=== PATIENT | male | born 1995 | race African-American/Black ===

== ENCOUNTER 2021-09-24 12:04 | Inpatient (IN) ==
[2021-09-24 15:23] LABS: Basophils # 0.1 10*3/uL (0.0-0.2); Basophils % 0.8 % (0.0-0.8); Eosinophils % 0.2 % (0.00-10.9); Hematocrit 48.3 VOL% (42.0-52.0); Hemoglobin 16.1 GM/DL (14.0-18.0); Immature Granulocytes % 0.3 %; Immature Granulocytes Absolute 0.02 #; Lymphocytes # 2.3 10*3/uL (1.4-4.0); Lymphocytes % 34.2 % (21.2-54.2); Mean Corpuscular HGB Conc 33.3 GM/DL (32-36); Mean Corpuscular Volume 88.1 FL (87-102); Mean Platelet Volume 9.3 FL (9.6-12.0); Monocytes # 0.6 10*3/uL (0.11-0.8); Monocytes % 8.5 % (1.7-12.7); Platelet Count 242 T/CUMM (130-400); Red Blood Count 5.48 MC/CUMM (3.8-5.5); Red Cell Distribution Width 12.9 % (9.3-17.3); White Blood Count 6.6 T/CUMM (4-12)
[2021-09-24 15:47] LABS: Alanine Aminotransferase 148 U/L (16-61); Albumin > 5.0 G/DL (3.4-5.0); Alkaline Phosphatase 106 U/L (45-117); Aspartate Amino Transferase 34 U/L (0-37); Blood Urea Nitrogen 13 MG/DL (7-18); Calcium 10.5 MG/DL (8.5-10.1); Carbon Dioxide 26 MMOL/L (21-32); Chloride 104 MMOL/L (98-107); Estimated Glom Filtration Rate 156 ML/MIN; Glucose 97 MG/DL (74-106); Potassium 3.7 MMOL/L (3.5-5.1); Sodium 136 MMOL/L (136-145); Total Protein 9.8 G/DL (6.4-8.2)
[2021-09-24 15:50] LABS: Free T4 (Free Thyroxine) 1.32 NG/DL (0.76-1.46); Thyroid Stimulating Hormone 2.05 uIU/ml (0.358-3.74)
[2021-09-24 15:57] LABS: Atypical Lymphocytes Few; Lymphocytes 34 % (20-55); Total Cells Counted 100
[2021-09-24 16:04] LABS: Platelet Estimate Normal
[2021-09-24 19:38] LABS: Mucus,Urine Occasional /LPF (Occasional); RBC,Urine 6 /HPF (0-4)
[2021-09-24 19:40] LABS: Bilirubin,Urine Negative (Negative); Blood, Urine Trace mg/dL (Negative); Glucose,Urine (UA) Negative (Negative); Ketones,Urine Negative (Negative); Nitrite,Urine Negative (Negative); Protein,Urine Negative (Negative); Urine Appearance Clear (Clear); Urine Color Yellow (Yellow); Urine pH 7.5 (4.5-8.0)
[2021-09-24 19:51] LABS: Barbiturates Screen,Urine Negative (Negative); Benzodiazepines Screen,Urine Negative (Negative); Cannabinoid Screen,Urine Negative (Negative); Opiate Screen,Urine Negative (Negative); Phencyclidine Screen,Urine Negative (Negative)
[2021-09-24] MEDS: SODIUM CHLORIDE 0.9% 1,000 ML IV SCH (21:17)
[2021-09-24] MEDS: ACETAMINOPHEN 325 MG TABLET PO PRN (22:40)
[2021-09-25] MEDS: SODIUM CHLORIDE 0.9% 1,000 ML IV SCH (07:06)
[2021-09-25 08:18] LABS: Albumin 4.9 G/DL (3.4-5.0); Bilirubin,Total 0.7 MG/DL (0.20-1.00); Calcium 10.1 MG/DL (8.5-10.1); Potassium 3.7 MMOL/L (3.5-5.1); Total Protein 9.4 G/DL (6.4-8.2)
[2021-09-25 08:31] LABS: Parathyroid Hormone Intact 49.7 PG/ML (18.4-80.1)
[2021-09-25] MEDS: PANTOPRAZOLE 40 MG TABLET PO SCH (09:07)
[2021-09-25 09:10] LABS: Albumin (SPE) 6.6 G/DL (3.2-5.3); Albumin (SPE) Rel % 66.3 %; Alpha 1 (SPE) 0.3 G/DL (0.1-0.4); Alpha 1 (SPE) Rel % 2.5 %; Alpha 2 (SPE) 0.6 G/DL (0.4-1.0); Beta (SPE) 1.1 G/DL (0.5-1.1); Beta (SPE) Rel % 11.1 %; Gamma (SPE) 1.4 G/DL (0.7-1.7); Gamma (SPE) Rel % 14.1 %
[2021-09-25] MEDS: ONDANSETRON 4 MG/2 ML VIAL IV PRN (09:16)
[2021-09-25 11:14] LABS: Basophils % 0.5 % (0.0-0.8); Eosinophils % 0.3 % (0.00-10.9); Hematocrit 45.3 VOL% (42.0-52.0); Hemoglobin 15.4 GM/DL (14.0-18.0); Immature Granulocytes % 0.2 %; Immature Granulocytes Absolute 0.01 #; Lymphocytes # 2.6 10*3/uL (1.4-4.0); Lymphocytes % 43.5 % (21.2-54.2); Mean Corpuscular Volume 85.8 FL (87-102); Monocytes # 0.7 10*3/uL (0.11-0.8); Monocytes % 12.3 % (1.7-12.7); Neutrophils % 43.2 % (38.7-73.9); Platelet Count 236 T/CUMM (130-400); Red Blood Count 5.28 MC/CUMM (3.8-5.5); Red Cell Distribution Width 12.6 % (9.3-17.3)
[2021-09-25] MEDS: DOCUSATE SODIUM 100 MG CAPSULE PO SCH ×2 (12:23→21:31)
[2021-09-25 14:32] LABS: PT Patient Result 11.5 SECS (10.5-12.0)
[2021-09-25 15:55] LABS: Glucose,CSF 64 MG/DL (40-70)
[2021-09-25 16:41] LABS: Lymphocytes,CSF 90 %; Neutrophils,CSF 10 %; Red Blood Cell,CSF 2 C/CUMM; White Blood Cell,CSF 7 C/CUMM
[2021-09-25 16:42] LABS: Appearance,CSF Clear
[2021-09-25] MEDS: diphenhydrAMINE CAP 25 MG CAPSULE PO SCH (17:35)
[2021-09-25] MEDS ORDERED: IMMUNE GLOBULIN 10% 20 GM, IMMUNE GLOBULIN 10% 10 GM in PREMIX 1 EACH IV SCH (18:00)
[2021-09-25] MEDS: ACETAMINOPHEN 500 MG TABLET PO SCH (18:33)
[2021-09-25] MEDS: hydrALAZINE 20 MG/1 ML VIAL IV PRN ×2 (20:25→22:28)
[2021-09-26] MEDS: SODIUM CHLORIDE 0.9% 1,000 ML IV SCH ×4 (00:25→23:05)
[2021-09-26] MEDS: ACETAMINOPHEN 325 MG TABLET PO PRN (04:23)
[2021-09-26] MEDS: ONDANSETRON 4 MG/2 ML VIAL IV PRN ×2 (06:40→12:34)
[2021-09-26 06:45] LABS: Basophils % 0.6 % (0.0-0.8); Hematocrit 43.3 VOL% (42.0-52.0); Hemoglobin 14.9 GM/DL (14.0-18.0); Immature Granulocytes % 0.2 %; Immature Granulocytes Absolute 0.01 #; Lymphocytes # 1.4 10*3/uL (1.4-4.0); Lymphocytes % 28.3 % (21.2-54.2); Mean Corpuscular HGB Conc 34.4 GM/DL (32-36); Mean Corpuscular Volume 85.6 FL (87-102); Mean Platelet Volume 9.6 FL (9.6-12.0); Monocytes # 0.6 10*3/uL (0.11-0.8); Monocytes % 11.6 % (1.7-12.7); Neutrophils % 59.3 % (38.7-73.9); Platelet Count 233 T/CUMM (130-400); Red Blood Count 5.06 MC/CUMM (3.8-5.5); Red Cell Distribution Width 12.9 % (9.3-17.3); White Blood Count 5.1 T/CUMM (4-12)
[2021-09-26 07:08] LABS: Albumin 4.4 G/DL (3.4-5.0); Bilirubin,Total 0.7 MG/DL (0.20-1.00); Calcium 9.8 MG/DL (8.5-10.1); Osmolality,Calculated 271.1 MOS/KG (273-304); Platelet Estimate Normal; Potassium 3.9 MMOL/L (3.5-5.1); Total Protein 9.8 G/DL (6.4-8.2)
[2021-09-26] MEDS: PANTOPRAZOLE 40 MG TABLET PO SCH (08:47)
[2021-09-26] MEDS: DOCUSATE SODIUM 100 MG CAPSULE PO SCH ×2 (08:47→21:25)
[2021-09-26] MEDS: CHOLECALCIFEROL 5,000 UNIT TABLET PO SCH (10:29)
[2021-09-26 12:33] LABS: Folate 6.79 NG/ML (5.38-24.0)
[2021-09-26] MEDS: MECLIZINE 25 MG TABLET PO PRN (14:31)
[2021-09-26] MEDS: ENOXAPARIN 40 MG/0.4 ML SYRINGE SUBCUT SCH (14:31)
[2021-09-26] MEDS: ACETAMINOPHEN 500 MG TABLET PO SCH (16:57)
[2021-09-26] MEDS: diphenhydrAMINE CAP 25 MG CAPSULE PO SCH (16:57)
[2021-09-26] MEDS ORDERED: IMMUNE GLOBULIN 10% 20 GM, IMMUNE GLOBULIN 10% 10 GM in PREMIX 1 EACH IV SCH (18:00)
[2021-09-26] MEDS: POLYETHYLENE GLYCOL POWDER 17 GM PACK PO SCH (21:25)
[2021-09-26] MEDS: LACTULOSE 20 GM/30 ML UDCUP PO SCH (21:25)
[2021-09-27 05:04] LABS: Basophils % 0.7 % (0.0-0.8); Eosinophils % 0.3 % (0.00-10.9); Hematocrit 42.4 VOL% (42.0-52.0); Hemoglobin 14.3 GM/DL (14.0-18.0); Immature Granulocytes % 0.3 %; Immature Granulocytes Absolute 0.02 #; Lymphocytes # 2.2 10*3/uL (1.4-4.0); Lymphocytes % 35.6 % (21.2-54.2); Mean Corpuscular HGB Conc 33.7 GM/DL (32-36); Mean Corpuscular Volume 86.4 FL (87-102); Monocytes # 0.7 10*3/uL (0.11-0.8); Monocytes % 12.2 % (1.7-12.7); Neutrophils % 50.9 % (38.7-73.9); Platelet Count 245 T/CUMM (130-400); Red Blood Count 4.91 MC/CUMM (3.8-5.5); Red Cell Distribution Width 12.9 % (9.3-17.3); White Blood Count 6.1 T/CUMM (4-12)
[2021-09-27 05:20] LABS: Bilirubin,Total 0.6 MG/DL (0.20-1.00); Calcium 9.7 MG/DL (8.5-10.1); Osmolality,Calculated 267.4 MOS/KG (273-304); Potassium 3.9 MMOL/L (3.5-5.1)
[2021-09-27 05:29] LABS: Platelet Estimate Adequate
[2021-09-27] MEDS: SODIUM CHLORIDE 0.9% 1,000 ML IV SCH ×3 (06:39→17:06)
[2021-09-27] MEDS: LACTULOSE 20 GM/30 ML UDCUP PO SCH ×2 (08:09→20:08)
[2021-09-27] MEDS: CHOLECALCIFEROL 5,000 UNIT TABLET PO SCH (08:09)
[2021-09-27] MEDS: POLYETHYLENE GLYCOL POWDER 17 GM PACK PO SCH ×2 (08:09→20:08)
[2021-09-27] MEDS: DOCUSATE SODIUM 100 MG CAPSULE PO SCH (08:10)
[2021-09-27] MEDS: PANTOPRAZOLE 40 MG TABLET PO SCH (08:10)
[2021-09-27] MEDS: amLODIPine 5 MG TABLET PO SCH (08:11)
[2021-09-27] MEDS ORDERED: amLODIPine 5 MG TABLET PO SCH (09:00)
[2021-09-27 10:11] LABS: Kappa Free Light Chain, CSF 0.0175 mg/dL (<0.1000)
[2021-09-27] MEDS: hydrALAZINE 20 MG/1 ML VIAL IV PRN (11:28)
[2021-09-27] MEDS: ENOXAPARIN 40 MG/0.4 ML SYRINGE SUBCUT SCH (13:31)
[2021-09-27 14:09] LABS: PTH-Related Peptide < 0.4 pmol/L (< or = 4.2)
[2021-09-27] MEDS: DOCUSATE SODIUM 100 MG/10 ML UDCUP PO SCH (20:09)
[2021-09-27] MEDS: MELATONIN 3 MG TABLET PO PRN (20:09)
[2021-09-27] MEDS: ACETAMINOPHEN 500 MG TABLET PO SCH (20:10)
[2021-09-27] MEDS: diphenhydrAMINE CAP 25 MG CAPSULE PO SCH (20:10)
[2021-09-27] MEDS: IMMUNE GLOBULIN 10% 20 GM, IMMUNE GLOBULIN 10% 10 GM in PREMIX 1 EACH IV SCH (20:15)
[2021-09-28] MEDS: hydrALAZINE 20 MG/1 ML VIAL IV PRN (05:27)
[2021-09-28 05:36] LABS: Basophils % 0.4 % (0.0-0.8); Hematocrit 40.5 VOL% (42.0-52.0); Hemoglobin 13.6 GM/DL (14.0-18.0); Immature Granulocytes % 0.3 %; Immature Granulocytes Absolute 0.03 #; Lymphocytes % 20.7 % (21.2-54.2); Mean Corpuscular HGB Conc 33.6 GM/DL (32-36); Mean Corpuscular Volume 87.1 FL (87-102); Mean Platelet Volume 9.3 FL (9.6-12.0); Monocytes # 1.2 10*3/uL (0.11-0.8); Monocytes % 12.3 % (1.7-12.7); Neutrophils % 66.3 % (38.7-73.9); Platelet Count 242 T/CUMM (130-400); Red Blood Count 4.65 MC/CUMM (3.8-5.5); Red Cell Distribution Width 13.1 % (9.3-17.3); White Blood Count 9.5 T/CUMM (4-12)
[2021-09-28 05:49] LABS: Albumin 3.8 G/DL (3.4-5.0); Bilirubin,Total 0.6 MG/DL (0.20-1.00); Calcium 9.5 MG/DL (8.5-10.1); Osmolality,Calculated 265.5 MOS/KG (273-304); Total Protein 10.3 G/DL (6.4-8.2)
[2021-09-28] MEDS: SODIUM CHLORIDE 0.9% 1,000 ML IV SCH ×3 (09:00→17:37)
[2021-09-28] MEDS ORDERED: LOSARTAN 50 MG TABLET PO SCH (09:00)
[2021-09-28] MEDS: amLODIPine 5 MG TABLET PO SCH (09:19)
[2021-09-28] MEDS: DOCUSATE SODIUM 100 MG/10 ML UDCUP PO SCH ×2 (09:19→20:32)
[2021-09-28] MEDS: LACTULOSE 20 GM/30 ML UDCUP PO SCH ×2 (09:19→20:32)
[2021-09-28] MEDS: CHOLECALCIFEROL 5,000 UNIT TABLET PO SCH (09:19)
[2021-09-28] MEDS: POLYETHYLENE GLYCOL POWDER 17 GM PACK PO SCH ×2 (09:19→20:32)
[2021-09-28] MEDS: hydrALAZINE 25 MG TABLET PO SCH ×3 (09:20→20:31)
[2021-09-28] MEDS: PANTOPRAZOLE 40 MG TABLET PO SCH (09:20)
[2021-09-28 09:50] LABS: Arterial Base Excess iSTAT 0 MMOL/L (-2.5-2.5); Arterial Bicarbonate iSTAT 23.9 MMOL/L (20-26); Arterial O2 Saturation iSTAT 98 % (95-100); Arterial PCO2 iSTAT 37 MM HG (35-48); Arterial PO2 iSTAT 98 MM HG (80-95); Arterial Total CO2 iSTAT 25 MMO/L (23-27); Arterial pH iSTAT 7.419 (7.35-7.45)
[2021-09-28] MEDS: ONDANSETRON 4 MG/2 ML VIAL IV PRN (11:12)
[2021-09-28 13:54] LABS: Hepatitis B Core IgM Quant 0.16 Index; Hepatitis B Surface Ag Quant 0.14 Index; Hepatitis B Surface Ag Result Non-Reactive (NonReactive); Hepatitis C Virus Ab Quant 0.28 Index; Hepatitis C Virus Ab Result Non-Reactive (NonReactive)
[2021-09-28] MEDS: LEVALBUTEROL 0.63 MG/3 ML NEB RESP TX PRN ×2 (14:20→20:10)
[2021-09-28] MEDS: ENOXAPARIN 40 MG/0.4 ML SYRINGE SUBCUT SCH (14:28)
[2021-09-28] MEDS ORDERED: SCOPOLAMINE 1.5 MG PATCH TRANSDERM SCH (14:30)
[2021-09-28] MEDS ORDERED: LEVALBUTEROL 1.25 MG/3 ML NEB RESP TX ONE (19:54)
[2021-09-28] MEDS: diphenhydrAMINE CAP 25 MG CAPSULE PO SCH (20:31)
[2021-09-28] MEDS: ACETAMINOPHEN 500 MG TABLET PO SCH (20:31)
[2021-09-28] MEDS: MELATONIN 3 MG TABLET PO PRN (20:31)
[2021-09-28] MEDS: IMMUNE GLOBULIN 10% 20 GM, IMMUNE GLOBULIN 10% 10 GM in PREMIX 1 EACH IV SCH (20:32)
[2021-09-29] MEDS: LEVALBUTEROL 0.63 MG/3 ML NEB RESP TX PRN ×4 (00:30→21:58)
[2021-09-29] MEDS: MECLIZINE 25 MG TABLET PO PRN (02:39)
[2021-09-29 08:42] LABS: Arterial Base Excess iSTAT 1 MMOL/L (-2.5-2.5); Arterial Bicarbonate iSTAT 25.9 MMOL/L (20-26); Arterial O2 Saturation iSTAT 98 % (95-100); Arterial PCO2 iSTAT 41 MM HG (35-48); Arterial PO2 iSTAT 100 MM HG (80-95); Arterial Total CO2 iSTAT 27 MMO/L (23-27)
[2021-09-29] MEDS: ONDANSETRON 4 MG/2 ML VIAL IV PRN (09:08)
[2021-09-29] MEDS: PANTOPRAZOLE 40 MG TABLET PO SCH (09:09)
[2021-09-29] MEDS: LOSARTAN 50 MG TABLET PO SCH (09:09)
[2021-09-29] MEDS: CHOLECALCIFEROL 5,000 UNIT TABLET PO SCH (09:09)
[2021-09-29] MEDS: hydrALAZINE 25 MG TABLET PO SCH ×4 (09:09→21:10)
[2021-09-29] MEDS: amLODIPine 5 MG TABLET PO SCH (09:09)
[2021-09-29 09:43] LABS: Calcium 9.8 MG/DL (8.5-10.1); Osmolality,Calculated 272.2 MOS/KG (273-304); Potassium 3.9 MMOL/L (3.5-5.1)
[2021-09-29] MEDS ORDERED: SIMETHICONE CHEW 125 MG TABLET PO PRN (12:03)
[2021-09-29] MEDS: SODIUM CHLORIDE 0.9% 1,000 ML IV SCH ×3 (12:04→23:03)
[2021-09-29] MEDS: POLYETHYLENE GLYCOL POWDER 17 GM PACK PO SCH ×2 (12:04→23:04)
[2021-09-29] MEDS: LACTULOSE 20 GM/30 ML UDCUP PO SCH ×2 (12:04→23:03)
[2021-09-29] MEDS: DOCUSATE SODIUM 100 MG/10 ML UDCUP PO SCH ×2 (12:04→23:03)
[2021-09-29] MEDS: ENOXAPARIN 40 MG/0.4 ML SYRINGE SUBCUT SCH (15:10)
[2021-09-29] MEDS: MELATONIN 3 MG TABLET PO PRN (21:09)
[2021-09-29] MEDS: diphenhydrAMINE CAP 25 MG CAPSULE PO SCH (21:09)
[2021-09-29] MEDS: IMMUNE GLOBULIN 10% 20 GM, IMMUNE GLOBULIN 10% 10 GM in PREMIX 1 EACH IV SCH (21:10)
[2021-09-29] MEDS: ACETAMINOPHEN 500 MG TABLET PO SCH (21:10)
[2021-09-30] MEDS: LEVALBUTEROL 0.63 MG/3 ML NEB RESP TX PRN ×2 (03:45→07:15)
[2021-09-30] MEDS ORDERED: LORazepam 2 MG/1 ML VIAL IV ONE (03:46)
[2021-09-30] MEDS ORDERED: ALPRAZolam 0.5 MG TABLET PO PRN (03:47)
[2021-09-30] MEDS: SODIUM CHLORIDE 0.9% 1,000 ML IV SCH ×3 (04:54→15:08)
[2021-09-30] MEDS ORDERED: LABETALOL 20 MG/4 ML SYRINGE IV ONE (05:28)
[2021-09-30 06:07] VITALS: BP 122/77
[2021-09-30 06:09] LABS: Basophils % 0.3 % (0.0-0.8); Hematocrit 39.4 VOL% (42.0-52.0); Immature Granulocytes % 0.3 %; Immature Granulocytes Absolute 0.02 #; Lymphocytes # 0.8 10*3/uL (1.4-4.0); Lymphocytes % 13.3 % (21.2-54.2); Mean Corpuscular Volume 88.7 FL (87-102); Mean Platelet Volume 9.7 FL (9.6-12.0); Monocytes # 1.4 10*3/uL (0.11-0.8); Monocytes % 23.2 % (1.7-12.7); Neutrophils % 62.9 % (38.7-73.9); Platelet Count 244 T/CUMM (130-400); Red Blood Count 4.44 MC/CUMM (3.8-5.5); Red Cell Distribution Width 13.8 % (9.3-17.3); White Blood Count 6.2 T/CUMM (4-12)
[2021-09-30 06:37] LABS: Band Neutrophils 13 % (0-10); Lymphocytes 11 % (20-55); Total Cells Counted 100
[2021-09-30 06:38] LABS: Albumin 3.4 G/DL (3.4-5.0); Bilirubin,Total 1.3 MG/DL (0.20-1.00); Calcium 9.7 MG/DL (8.5-10.1); Hypochromia 1+; Microcytosis Slight; Osmolality,Calculated 279.8 MOS/KG (273-304); Platelet Estimate Normal; Potassium 4.2 MMOL/L (3.5-5.1); Total Protein 11.5 G/DL (6.4-8.2)
[2021-09-30] MEDS: hydrALAZINE 20 MG/1 ML VIAL IV PRN ×2 (07:54→11:01)
[2021-09-30] MEDS ORDERED: METOPROLOL TARTRATE 5 MG/5 ML VIAL IV PRN ×2 (08:36→11:21)
[2021-09-30] MEDS ORDERED: cloNIDine 0.3 MG/24 HR PATCH TRANSDERM SCH (09:00)
[2021-09-30 09:16] LABS: Bacteria,Urine Occasional /HPF (Few); Glucose,Urine (UA) Negative (Negative); Mucus,Urine Occasional /LPF (Occasional); RBC,Urine 58 /HPF (0-4); Squamous Epithelial Cell,Urine Occasional /HPF (0-10); Urine Appearance Clear (Clear); Urine Specific Gravity >= 1.030 (1.001-1.035); Urine pH 5.5 (4.5-8.0)
[2021-09-30 09:17] LABS: Bilirubin,Urine Negative (Negative); Blood, Urine Moderate mg/dL (Negative); Ketones,Urine Negative (Negative); Nitrite,Urine Negative (Negative)
[2021-09-30 09:19] LABS: Urine Color Yellow (Yellow)
[2021-09-30 09:24] LABS: Protein,Urine 30 mg/dL (Negative)
[2021-09-30] MEDS: hydrALAZINE 25 MG TABLET PO SCH (10:15)
[2021-09-30] MEDS ORDERED: METOPROLOL TARTRATE 5 MG/5 ML VIAL IV ONE ×2 (11:10→11:12)
[2021-09-30] MEDS ORDERED: MORPHINE 2 MG/1 ML SYRINGE IV PRN (11:13)
[2021-09-30] MEDS: POLYETHYLENE GLYCOL POWDER 17 GM PACK PO SCH (11:54)
[2021-09-30] MEDS: DOCUSATE SODIUM 100 MG/10 ML UDCUP PO SCH (11:54)
[2021-09-30] MEDS: PANTOPRAZOLE 40 MG TABLET PO SCH (11:54)
[2021-09-30] MEDS: LACTULOSE 20 GM/30 ML UDCUP PO SCH (11:54)
[2021-09-30] MEDS: amLODIPine 5 MG TABLET PO SCH (11:54)
[2021-09-30] MEDS: LOSARTAN 50 MG TABLET PO SCH (11:54)
[2021-09-30] MEDS: CHOLECALCIFEROL 5,000 UNIT TABLET PO SCH (11:54)
[2021-09-30 13:57] LABS: Arterial Base Excess iSTAT 3 MMOL/L (-2.5-2.5); Arterial Bicarbonate iSTAT 27.8 MMOL/L (20-26); Arterial O2 Saturation iSTAT 100 % (95-100); Arterial PCO2 iSTAT 43 MM HG (35-48); Arterial PO2 iSTAT 207 MM HG (80-95); Arterial Total CO2 iSTAT 29 MMO/L (23-27); Arterial pH iSTAT 7.416 (7.35-7.45)
[2021-09-30] MEDS ORDERED: METOPROLOL TARTRATE 5 MG/5 ML VIAL IV SCH (14:00)
[2021-09-30] MEDS ORDERED: SUCCINYLCHOLINE 200 MG/10 ML VIAL ONE (14:29)
[2021-09-30] MEDS ORDERED: ETOMIDATE 20 MG/10 ML VIAL IV ONE ×2 (14:29→14:40)
[2021-09-30] MEDS ORDERED: SUCCINYLCHOLINE 200 MG/10 ML VIAL IV ONE (14:40)
[2021-09-30] MEDS ORDERED: DIGOXIN 0.5 MG/2 ML AMP IV ONE ×2 (14:54→15:30)
[2021-09-30] MEDS: ENOXAPARIN 40 MG/0.4 ML SYRINGE SUBCUT SCH (15:21)
[2021-09-30 15:47] LABS: Arterial Base Excess iSTAT 2 MMOL/L (-2.5-2.5); Arterial Bicarbonate iSTAT 26.8 MMOL/L (20-26); Arterial O2 Saturation iSTAT 99 % (95-100); Arterial PCO2 iSTAT 41 MM HG (35-48); Arterial PO2 iSTAT 139 MM HG (80-95); Arterial Total CO2 iSTAT 28 MMO/L (23-27); Arterial pH iSTAT 7.423 (7.35-7.45)
[2021-09-30] MEDS ORDERED: MIDAZOLAM 100 MG in SODIUM CHLORIDE 0.9% 80 ML IV PRN (16:00)
== END 2021-09-30 18:36 | DRG 94 ==
LOC: N.ED 12:04 → N.EDINP 12:04 → SUATTDRO 19:36 → N.EDINP 21:56 → N.3E 21:59 → SUATTDRO 09-25 16:30 → N.ICU 09-30 08:00
PROVIDERS: ADMIT Hospitalist; ATTEND Internal Medicine